=== PATIENT | female | born 1980 | race Caucasian/White ===

== ENCOUNTER 2017-10-17 00:05 | Inpatient (IN) | payer OTHER ==
[~2017-10-17] VITALS: Ht 162.6 cm; Wt 133.5 kg
[2017-10-17] VITALS (12 sets, daily range): BP systolic 138–174; BP diastolic 73–92; PULSE 64–89; RESP 18–24; TEMP 97.7–98.6; O2SAT 94–96
[~2017-10-17 00:05] MED LIST: AMOX400S3 PO; AMOX875T2 PO; PRED5PAK PO; REGL10TA5 PO; SODIUM CHLORIDE 0.9% FLUSH 10 ML FLUSH IV FLUSH PRN
--- NOTE | 2017-10-17 06:37 | HHI.HP ---
[facility] Service [place] [facility] Primary Care Physician [facility] - Dr. Giang . Admission Diagnosis r/o CVA, dysphagia . Diagnoses: (1) Dysphagia Chief Complaint: Dysphagia Travel History International Travel<30 Days: No Contact w/Intl Traveler <30 Da: No History of Present Illness Mrs. Morel is a very pleasant 37-year-old female patient who was brought to [facility] from [place] for evaluation of possible CVA. The patient's symptoms began on Sunday when she woke up with the left side of her face around her eye and ear and down her cheek into her neck felt severely painful. The pain is described as a pressure. She thought it was an ear infection and went to work. She made appointment to see her primary care physician at [facility] Dr. Portillo. She said that they didn't find any source of infection but her white blood count was elevated and they put her on prednisone and amoxicillin. Regarding her ear, she had a little bit of fluid but no overt otitis media. If she states that she felt like she had something in her throat that could've been mucus. She vomited a few times during the day. She ate soup for lunch and was able to swallow but it was uncomfortable. After work, she had a terrible pain in her head and she took her first dose of prednisone and amoxicillin and follow like it got stuck in her throat. She said she had had a similar experience with ibuprofen a few years ago when it got stuck in her throat while she swallowed and she had subsequent lip swelling following that episode. She continued to feel like pills were stuck in her throat throughout the day and the night and vomited a total of 4 times during the day. 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 She reports that she is vomited so much that she's caused too subconjunctival hemorrhages in her eyes. She went to the emergency room and was given some liquid amoxicillin which was uncomfortable to drink. She was able to get it down but she also felt belching and heartburn. She was discharged and sent home. About 2:30 PM, her throat was feeling tight and swollen and she returned to the emergency room. On the first soft tissue and neck x-ray, a foreign body was thought to be present near the left giana but was later identified as most likely the patient's shirt button. The chest x-ray was negative for foreign body. She had cardiomegaly but no acute pulmonary disease. She's had a head CT with no acute disease noted. The patient reports that her speech seems weird because she is having difficulty controlling her tongue. She didn't feel any better after receiving steroids and Benadryl in the ED. She notices that she is coughing more since receiving a numbing medication in the emergency department last night that was given for sore throat. She tells me they had a negative strep test in the ED. She has no history of migraine headaches. She has felt both hot and cold alternating and felt like she might of had a fever but has no recorded fevers. She denies chest pain, shortness of breath, diarrhea, abdominal pain, weight loss, black or bloody stools, paresthesias. She denies having any unilateral weakness. She reports headache as feeling like more of the left sinus type of headache with more pressure than anything else. She denies any visual changes or blurry vision though she does endorse photophobia. During flashlight eye exam, she does not turn away from the light. Her and children have been fighting bronchitis and throat infections at home. Her was the first one who was ill. Review of Systems Except as stated in HPI: all other systems reviewed are Neg Past Family Social History Past Medical History induced hypertension Anxiety History of irregular heart rhythm or heart murmur though she is unable to tell me what exactly the diagnosis was Recent bout of hematuria with tiny, nonobstructive kidney stone found Denies diabetes mellitus, CAD, COPD, asthma, emphysema, liver disease, chronic kidney disease, DVT, PE, CVA, seizure, thyroid dysfunction, or cancer. . Past Surgical History D&C . Reported Medications Reported Meds & Active Scripts Active Reglan (Metoclopramide HCl) 10 Mg Tab 10 Mg PO QID 5 Days Amoxicillin Liq (Amoxicillin) 400 Mg/5 Ml Susp 800 Mg PO BID 7 Days Reported Prednisone (21) 5 mg tab Dose Pack (Prednisone) 5 Mg Dspk 5 Mg PO DIRECTED Amoxicillin-Clavulanate 875-125 mg Tab 875 Mg PO BID not for use in CrCl <30 mL/minute . Allergies: Coded Allergies: ibuprofen (Verified Allergy, Severe, Swelling, 10/16/17) Active Ordered Medications Current Medications Sodium Chloride (NS Flush) 2 ml BID IV FLUSH ; Start 10/17/17 at 09:00 Sodium Chloride (NS Flush) 2 ml UNSCH PRN IV FLUSH FLUSH AFTER USING IV ACCESS ; Start 10/16/17 at 22:45 . Family History Mother with breast cancer, diabetes mellitus, and hypertension Dad had CHF and sarcoidosis . Social History Tobacco: Smoked briefly for 10 years but not with any regularity and never smoked while Alcohol: Rare occasions Illicit Drugs: Denies She is and has 3 sons. 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 She's been under a lot of stress recently. . Physical Exam Vital Signs Vital Signs Date Time Temp Pulse Resp B/P (MAP) Pulse Ox O2 Delivery O2 Flow Rate FiO2 10/17/17 05:07 64 10/17/17 04:13 98.4 86 18 169/84 (112) 96 10/17/17 02:11 71 10/17/17 01:13 97.9 73 18 174/92 (119) 95 Physical Exam GENERAL: This is an obese female patient, in no apparent distress. SKIN: No rashes, ecchymoses or lesions. Cool and dry. HEAD: Atraumatic. Normocephalic. EYES: Pupils equal round and reactive. No scleral icterus. Bilateral subconjunctival hemorrhage. ENT: Nose without bleeding, purulent drainage. Throat without erythema, tonsillar hypertrophy or exudate. Airway patent. Pain with palpation of left sphenoid sinus area and mid frontal area of face. NECK: Trachea midline. No JVD or lymphadenopathy. Supple, nontender, no meningeal signs. CARDIOVASCULAR: Regular rate and rhythm without murmurs, gallops, or rubs. RESPIRATORY: Clear to auscultation. Breath sounds equal bilaterally. No wheezes , rales, or rhonchi. GASTROINTESTINAL: Abdomen soft, non-tender, nondistended. No hepato-splenomegaly , or palpable masses. No guarding. MUSCULOSKELETAL: Extremities without clubbing, cyanosis, or edema. No joint tenderness, effusion, or edema noted. No calf tenderness. Negative Homans sign bilaterally. NEUROLOGICAL: Awake and alert. Motor and sensory grossly within normal limits. Five out of 5 muscle strength in all muscle groups. Speech does sound like there is some mild impairment. Patient was given water at bedside and coughed after taking a couple of sips. Left side of tongue appears to be somewhat swollen or more elevated on left during exam - whichever, it is a noticeable finding - there is no tongue deviation with protrusion. No pain with palpation in lutheran areas. . Laboratory Laboratory Tests Test 10/16/17 22:20 10/16/17 23:30 Prothrombin Time 10.7 SEC Prothromb Time International Ratio 1.0 RATIO Activated Partial Thromboplast Time 28.7 SEC White Blood Count 14.1 TH/MM3 Red Blood Count 4.54 MIL/MM3 Hemoglobin 13.4 GM/DL Hematocrit 39.9 % Mean Corpuscular Volume 87.9 FL Mean Corpuscular Hemoglobin 29.5 PG Mean Corpuscular Hemoglobin Concent 33.6 % Red Cell Distribution Width 13.5 % Platelet Count 374 TH/MM3 Mean Platelet Volume 9.4 FL Immature Granulocyte % (Auto) 0.4 % Neutrophils (%) (Auto) 91.2 % Lymphocytes (%) (Auto) 7.8 % Monocytes (%) (Auto) 0.5 % Eosinophils (%) (Auto) 0.0 % Basophils (%) (Auto) 0.1 % Immature Granulocyte # (Auto) 0.1 TH/MM3 Neutrophils # (Auto) 12.8 TH/MM3 Lymphocytes # (Auto) 1.1 TH/MM3 Monocytes # (Auto) 0.1 TH/MM3 Eosinophils # (Auto) 0.0 TH/MM3 Basophils # (Auto) 0.0 TH/MM3 CBC Comment DIFF FINAL Differential Comment Blood Urea Nitrogen 8 MG/DL Creatinine 0.70 MG/DL Random Glucose 170 MG/DL Total Protein 8.4 GM/DL Albumin 3.8 GM/DL Calcium Level 9.0 MG/DL Alkaline Phosphatase 109 U/L Aspartate Amino Transf (AST/SGOT) 10 U/L Alanine Aminotransferase (ALT/SGPT) 20 U/L Total Bilirubin 0.4 MG/DL Sodium Level 138 MEQ/L Potassium Level 4.4 MEQ/L Chloride Level 105 MEQ/L Carbon Dioxide Level 23.0 MEQ/L Anion Gap 10 MEQ/L Estimat Glomerular Filtration Rate 94 ML/MIN . Imaging Last Impressions Head CT 10/16/17 Signed Impressions: Service Date/Time: Monday, October 16, 2017 21:15 - CONCLUSION: No acute disease. Jm Driver MD Last Impressions Soft Tissue Neck X-Ray 10/16/17 Signed Impressions: Service Date/Time: Monday, October 16, 2017 10:02 - CONCLUSION: Foreign body as above. Chest x-ray suggested. Guy Lau MD FACR Chest X-Ray 10/16/17 Signed Impressions: Service Date/Time: Monday, October 16, 2017 10:37 - CONCLUSION: 1. Cardiomegaly. No acute pulmonary disease. No foreign body is identified. MD Scott Ayoub VTE Risk Assessment Caprini VTE Risk Assessment: No/Low Risk (score <= 1) Caprini Risk Assessment Model Point Value = 1 Point Value = 2 Point Value = 3 Point Value = 5 Age 41-60 Minor surgery BMI > 25 kg/m2 Swollen legs Varicose veins or History of unexplained or recurrent spontaneous Oral contraceptives or hormone replacement Sepsis (< 1 month) Serious lung disease, including pneumonia (< 1 month) Abnormal pulmonary function Acute myocardial infarction Congestive heart failure (< 1 month) History of inflammatory bowel disease Medical patient at bed rest Age 61-74 Arthroscopic surgery Major open surgery (> 45 min) Laparoscopic surgery (> 45 min) Malignancy Confined to bed (> 72 hours) Immobilizing plaster cast Central venous access Age >= 75 History of VTE Family history of VTE Factor V Leiden Prothrombin [id number] Lupus anticoagulant Anticardiolipin antibodies Elevated serum homocysteine Heparin-induced thrombocytopenia Other congenital or acquired thrombophilia Stroke (< 1 month) Elective arthroplasty Hip, pelvis, or leg fracture Acute spinal cord injury (< 1 month) Prophylaxis Regimen Total Risk Factor Score Risk Level Prophylaxis Regimen 0-1 Low Early ambulation 2 Moderate Order ONE of the following: *Sequential Compression Device (SCD) *Heparin 5000 units SQ BID 3-4 Higher Order ONE of the following medications: *Heparin 5000 units SQ TID *Enoxaparin/Lovenox 40 mg SQ daily (WT < 150 kg, CrCl > 30 mL/min) *Enoxaparin/Lovenox 30 mg SQ daily (WT < 150 kg, CrCl > 10-29 mL/min) *Enoxaparin/Lovenox 30 mg SQ BID (WT < 150 kg, CrCl > 30 mL/min) AND/OR *Sequential Compression Device (SCD) 5 or more Highest Order ONE of the following medications: *Heparin 5000 units SQ TID (Preferred with Epidurals) *Enoxaparin/Lovenox 40 mg SQ daily (WT < 150 kg, CrCl > 30 mL/min) *Enoxaparin/Lovenox 30 mg SQ daily (WT < 150 kg, CrCl > 10-29 mL/min) *Enoxaparin/Lovenox 30 mg SQ BID (WT < 150 kg, CrCl > 30 mL/min) AND *Sequential Compression Device (SCD) Assessment and Plan Problem List: (1) Dysphagia ICD Code: R13.10 - Dysphagia, unspecified Assessment and Plan Mrs. Morel is a very pleasant 37-year-old female patient who was brought to [facility] from [place] for evaluation of possible CVA. Dysphagia - suspect there may be underlying GERD with possible stricture vs CVA vs anxiety vs adverse reaction to lidocaine/benzocaine lozenges - Patient failed bedside swallow evaluation - She'll remain nothing by mouth - ST to evaluate swallowing - Consult gastroenterology - appreciate assistance - MRI and MRA are pending to rule out CVA - Neurology consultation patient by ER physician in [place] - appreciate their assistance - The patient has been using benzocaine throat lozenges and states she was also given lidocaine mouthwash in [place] - These medications also may be playing a role in the patient's symptoms at this point so I would avoid any additional use at this time Left facial pressure - I suspect this may be more related to sinus congestion though this is not noted on head CT - WBC is 14.1 with neutrophilia but she's been given steroids also - She is afebrile at this point and I do not feel that antibiotics are appropriate to continue - No left temporal pain on palpation DVT prophylaxis - Early ambulation Discussed Condition With Patient, RN, Dr. Weems . Stephanie Hillman Oct 17, 2017 06:37
[2017-10-17] MEDS: SODIUM CHLORIDE 0.9% FLUSH 10 ML FLUSH IV FLUSH SCH ×2 (09:00→21:00)
--- NOTE | 2017-10-17 09:51 | RADRPT ---
EXAM DATE/TIME: 10/17/2017 08:41 [facility] COMPARISON: No previous studies available for comparison. INDICATIONS : Left sided numbness. MEDICAL HISTORY : None. SURGICAL HISTORY : D and C. ENCOUNTER: Initial ACUITY: 1 day PAIN SCORE: 0/10 LOCATION: Head Please note a normal MRA of the brain does not entirely exclude the possibility of a small aneurysm, nor the possibility of distal intracranial vessel disease. TECHNIQUE: 3D time of flight MRA was performed. Source images, multiplanar STS MIP, and 3D volume MIP reconstru ctions were reviewed. FINDINGS: There is excellent visualization of the major intracranial arteries out to the second-order branch ve ssels. There is no evidence for aneurysm, vessel truncation or stenosis, and no evidence for vascula r malformation. There is a origin of the posterior cerebral artery on the left. There is a black nt posterior communicating artery on the right. A vascular loop is present in the distal internal car otid artery. CONCLUSION: 1. Unremarkable MR angiography of the brain. Jose Krause MD on October 17, 2017 at 9:47 Board Certified Radiologist. This report was verified electronically.
--- NOTE | 2017-10-17 09:52 | RADRPT ---
EXAM DATE/TIME: 10/17/2017 08:41 [facility] COMPARISON: No previous studies available for comparison. INDICATIONS : Left sided numbness. MEDICAL HISTORY : None. SURGICAL HISTORY : D and C. ENCOUNTER: Initial ACUITY: 2 day PAIN SCORE: 0/10 LOCATION: Head TECHNIQUE: Multiplanar, multisequence MRI of the brain was performed without contrast. FINDINGS: CEREBRUM: The ventricles are normal for age. No evidence of midline shift, mass lesion, hemorrhage or acute in farction. No extraaxial fluid collections are seen. The pituitary gland and suprasellar cistern are normal in configuration. WHITE MATTER: No significant signal abnormalities are seen in the white matter. POSTERIOR FOSSA: The cerebellum and brainstem are intact. The 4th ventricle is midline. The cerebellopontine angle is unremarkable. The cerebellar tonsils are normal in position. DIFFUSION IMAGING: No focal areas of restricted diffusion are seen. No evidence of acute infarction. EXTRACRANIAL: The visualized portions of the orbits and paranasal sinuses are unremarkable. CONCLUSION: 1. No evidence of acute intracranial pathology. No masses are identified. Jose Krause MD on October 17, 2017 at 9:49 Board Certified Radiologist. This report was verified electronically.
--- NOTE | 2017-10-17 09:55 | PD.CONS ---
HPI History of Present Illness This is a 37 year old female who presented with bolus sensation in throat. 2 days ago she began having throat discomfort and subsequently became bolus sensation after swallowing pills and she started having nausea and vomiting. Admits tongue swelling, increased burping. When she bent over to dry her hair she felt like the discomfort moved up her throat and she had some acid reflux that came out of her nose. SHe is able to swallow her secretions but is having difficulty initiating a swallow and feels like her tongue is not functioning. SHe had episode of pill stuck in throat a few years ago but it resolved. Denies painful swallowing, abd pain, blood in emesis, diarrhea, acid reflux. SHe admits pain in her head and neck, is being evaluated for stroke. Has sick family members in house. Never had EGD or colonoscopy. Swallow eval pending b/ c she is also coughing after swallowing in the last 2 days. SHe took prednisone and amoxicillin Sunday. (Marylou Yoder) PFSH Past Medical History induced hypertension Anxiety History of irregular heart rhythm or heart murmur though she is unable to tell me what exactly the diagnosis was Recent bout of hematuria with tiny, nonobstructive kidney stone found Past Surgical History D&C . (Marylou Yoder) Coded Allergies: ibuprofen (Verified Allergy, Severe, Swelling, 10/16/17) Family History Mother with breast cancer, diabetes mellitus, and hypertension Dad had CHF and sarcoidosis . Social History Tobacco: Smoked briefly for 10 years but not with any regularity and never smoked while Alcohol: Rare occasions Illicit Drugs: Denies . (Marylou Yoder) Review of Systems Constitutional: COMPLAINS OF: Fever Eyes: DENIES: Blurred vision Ears, nose, mouth, throat: DENIES: Throat pain Respiratory: DENIES: Wheezing Cardiovascular: DENIES: Chest pain Gastrointestinal: COMPLAINS OF: Nausea, Vomiting, DENIES: Abdominal pain, Black stools, Bloody stools, Constipation, Diarrhea, Difficulty Swallowing, Hematemesis Genitourinary: DENIES: Hematuria Musculoskeletal: DENIES: Joint Swelling Hematologic/lymphatic: DENIES: Bruising Neurologic: DENIES: Abnormal gait Psychiatric: COMPLAINS OF: Anxiety, DENIES: Confusion (Marylou Yoder) GI Exam Vitals I&O Vital Signs Date Time Temp Pulse Resp B/P (MAP) Pulse Ox O2 Delivery O2 Flow Rate FiO2 10/17/17 07:58 98.6 80 24 155/89 (111) 96 10/17/17 05:07 64 10/17/17 04:13 98.4 86 18 169/84 (112) 96 10/17/17 02:11 71 10/17/17 01:13 97.9 73 18 174/92 (119) 95 Physical Examination HEENT: PERRL; normocephalic; atraumatic; no jaundice. tongue appears mildly swollen, whitish coating CHEST: CTA CARDIAC: RRR ABDOMEN: Soft, obese, nontender; no hepatosplenomegaly; bowel sounds are present in all four quadrants. EXTREMITIES: No clubbing, cyanosis, or edema. SKIN: Normal; no rash; no jaundice. WOOD CASKET MAKER: No focal deficits; alert and oriented times three. (Marylou Yoder) Assessment and Plan Plan ASSESSMENT - bolus sensation, dysphagia, reflux- pt admits difficulty initiating swallow, swollen tongue, bolus sensation throat for last 2 days. Some n/v as well. had amox & prednisone Sunday. + sick contacts. unclear etiology could include gastritis vs h pylori vs candidiasis. being evaluated for CVA d/t unilateral face pain as well. + anxiety ST eval no sign of aspiration, swallow intact, and ok for any consistency, d/ w speech therapist PLAN - EGD, tomorrow - full liquids for now - obtain consents - NPO after MN - further recs to follow based on results above THis pt seen by myself and Dr Romero and this note is written on his behalf (Marylou Yoder) Physician Comments Seen and examined with DISTILLERY MANAGER< egd planned for tomorrow. Passed swallow evaluation. (John Romero MD) Marylou Yoder Oct 17, 2017 09:55 John Romero MD Oct 17, 2017 16:47
[2017-10-17] MEDS ORDERED: ENALAPRILAT 1.25 MG/ML VIAL IV PUSH PRN (11:00)
[2017-10-17] MEDS: MORPHINE SULFATE ORAL SOLN 10 MG/0.5 ML SYRINGE PO PRN ×2 (14:01→20:43)
[2017-10-17 18:50] LABS: HDL CHOLESTEROL 53.7 MG/DL (40.0-60.0); LDL CHOLESTEROL 109 MG/DL (0-99)
[2017-10-17] MEDS: SODIUM CHLOR 0.9% 1000 ML INJ 1,000 ML IV SCH (20:43)
[2017-10-17 21:45] LABS: HEMOGLOBIN A1a 1.4 %; HEMOGLOBIN Ao 83.8 %; HEMOGLOBIN F 1.5 %; HEMOGLOBIN LA1C 2.3 %; HEMOGLOBIN P3 3.8 %
[2017-10-17] MEDS ORDERED: METOPROLOL TARTRATE 25 MG TAB PO PRN (21:45)
[2017-10-17] MEDS ORDERED: LACTATED RINGER'S 1000 ML IV PRN (21:45)
[2017-10-17] MEDS ORDERED: CHLORHEXIDINE GLUCONATE 2 % 1 PACK (2 CLOTHS) TOPICAL PRN (21:45)
[2017-10-17] MEDS ORDERED: INSULIN HUMAN REGULAR 1,000 UNITS/10 ML VIAL SQ PRN (21:45)
[2017-10-17] MEDS ORDERED: SODIUM CHLORID 0.9% 500 ML IV PRN (21:45)
[2017-10-17] MEDS ORDERED: POVIDONE IODINE 5% (ANTISEPSIS KIT) 4 APPLICATIONS EACH NARE PRN (21:45)
--- NOTE | 2017-10-17 21:54 | MB ---
cc: ELLYN WILLIS DATE OF CONSULTATION: 10/17/2017 REASON FOR CONSULTATION: Rule out stroke. HISTORY OF PRESENT ILLNESS Ms. Morel is a 37 year-old woman who on Sunday began to experience pain on the left side of her head which was in the left temporal area radiating to the left occipital region. She went to the ER. Apparently the ear exam was normal but she was started on amoxicillin for possible sinusitis that did not help the pain. She denies any other neurologic symptoms. NEUROLOGICAL EXAMINATION: Vital signs: Blood pressure is 138/73, pulse 82, respirations 18, temperature is 98 degrees. Higher cortical functions normal. Cranial nerves are intact. Motor exam: 5/5 strength of all groups. There is no drift. Reflexes symmetric. She is tender of the left occipital groove. MRI of the brain is normal. MRA of the brain is normal. LABORATORY DATA: The white count is 14,100, hemoglobin 13.4, hematocrit 39.9% platelet count 374,000. Sodium 138, potassium 4.4, chloride 105, CO2 23, BUN is 8, creatinine 0.7, GFR is 94. IMPRESSION Probable cervical spondylosis with left occipital neuralgia. RECOMMENDATIONS We will obtain an MRI of the cervical spine to rule out cervical spondylosis, start Topamax 25 mg b.i.d., consider occipital nerve block. MD ROSALIA Lawrence/RIGO /9:13 PM /9:36 PM
[2017-10-17 22:37] LABS: BETA HCG QUANT LESS THAN 1 MIU/ML (0-5)
--- NOTE | 2017-10-17 23:11 | RADRPT ---
EXAM DATE/TIME: 10/17/2017 21:39 [facility] COMPARISON: No previous studies available for comparison. INDICATIONS : Left sided numbness and inability to swallow, cervical spondylosis. MEDICAL HISTORY : None. SURGICAL HISTORY : None. ENCOUNTER: Initial ACUITY: 3 day PAIN SCORE: 4/10 LOCATION: Left neck region. TECHNIQUE: Multiplanar, multisequence MRI examination of the cervical spine was performed. FINDINGS: VERTEBRAE: Normal vertebral body height. Homogeneous marrow signal. ALIGNMENT: No evidence of subluxation. CORD: Normal configuration and signal. POST FOSSA: The cerebellar tonsils are normal in position. C2-C3: The thecal sac has a normal configuration. There is no evidence of disc herniation or spinal canal s tenosis. The neural foramina are patent bilaterally. C3-C4: The thecal sac has a normal configuration. There is no evidence of disc herniation or spinal canal s tenosis. The neural foramina are patent bilaterally. C4-C5: The thecal sac has a normal configuration. There is no evidence of disc herniation or spinal canal s tenosis. The neural foramina are patent bilaterally. C5-C6: The thecal sac has a normal configuration. There is no evidence of disc herniation or spinal canal s tenosis. The neural foramina are patent bilaterally. C6-C7: The thecal sac has a normal configuration. There is no evidence of disc herniation or spinal canal s tenosis. The neural foramina are patent bilaterally. C7-T1: The thecal sac has a normal configuration. There is no evidence of disc herniation or spinal canal s tenosis. The neural foramina are patent bilaterally. CONCLUSION: 1. Cervical cord is within normal limits with no focal lesion or abnormal signal. 2. No disc protrusion or spinal stenosis. The neural foramina are patent. Syed Lion MD on October 17, 2017 at 23:08 Board Certified Radiologist. This report was verified electronically.
[2017-10-18] VITALS (17 sets, daily range): BP systolic 120–161; BP diastolic 63–92; PULSE 61–83; RESP 16–24; TEMP 97.6–98.8; O2SAT 93–98
[2017-10-18 07:38] LABS: HEMATOCRIT 37.1 % (35.0-46.0); MEAN CELL VOLUME 87.4 FL (80.0-100.0); MEAN CORPUSCULAR HEMOGLOBIN 29.2 PG (27.0-34.0); MEAN CORPUSCULAR HGB CONC 33.4 % (32.0-36.0); PLATELET COUNT 323 TH/MM3 (150-450); RED BLOOD COUNT 4.25 MIL/MM3 (4.00-5.30); RED CELL DISTRIBUTION WIDTH 13.9 % (11.6-17.2); REVIEW FLAG FINAL; WHITE BLOOD COUNT 11.9 TH/MM3 (4.0-11.0)
[2017-10-18 07:57] LABS: BICARBONATE 28.3 MEQ/L (21.0-32.0); POTASSIUM 3.7 MEQ/L (3.5-5.1)
[2017-10-18 07:59] LABS: MAGNESIUM 2.3 MG/DL (1.5-2.5)
[2017-10-18] MEDS: SODIUM CHLORIDE 0.9% FLUSH 10 ML FLUSH IV FLUSH SCH ×2 (09:00→21:00)
[2017-10-18] MEDS: TOPIRAMATE 25 MG TAB PO SCH ×2 (09:00→21:00)
--- NOTE | 2017-10-18 11:48 | GIPROC ---
[facility] [address] [facility]. [facility], [id number] EGD PROCEDURE REPORT EXAM DATE: 10/18/2017 PATIENT NAME: Letty Morel MR #: [id number] BIRTHDATE: 1980 ATTENDING: John Romero MD ORDER #: [id number] RN ADVICE: Barb Jansen and Andrea Quezada STATUS: inpatient INDICATIONS: The patient is a 37 yr old female here for an EGD due to history of esophageal reflux and dysphagia PROCEDURE PERFORMED: EGD w/ biopsy MEDICATIONS: None and Per Anesthesia. TOPICAL ANESTHETIC: CONSENT: The patient understands the risks and benefits of the procedure and understands that these risks include, but are not limited to: sedation, allergic reaction, infection, perforation and/or bleeding. Alternative means of evaluation and treatment include, among others: physical exam, x-rays, and/or surgical intervention. The patient elects to proceed with this endoscopic procedure. medical equipment was checked for proper function. Hand hygiene and appropriate measures for infection prevention was taken. After the risks, benefits and alternatives of the procedure were thoroughly explained, Informed consent was verified, confirmed and timeout was successfully executed by the treatment team. The patient was anesthetized with topical anesthesia and the Stunableax [id number] endoscope was introduced through the mouth and advanced to the second portion of the duodenum. Retroflexed views revealed no abnormalities The gastroscope was then slowly withdrawn and removed. ESOPHAGUS: There was LA Class A esophagitis noted. A biopsy was performed using cold forceps. Sample sent for histology. STOMACH: The mucosa of the stomach appeared normal. DUODENUM: The duodenal mucosa appeared normal in the bulb and second portion of the duodenum. ADVERSE EVENTS: There were no complications. IMPRESSIONS: 1. There was LA Class A esophagitis noted 2. The mucosa of the stomach appeared normal 3. Normal duodenal mucosa in the bulb and second portion of the duodenum 4. Retroflexed views revealed no abnormalities RECOMMENDATIONS: 1. Await biopsy results. Biopsy results will not be ready for 7-10 days. If you don't hear from us in two weeks, call our office for biopsy results. 2. Anti-reflux regimen 3. Continue PPI PATIENT CONDITION: stable DISPOSITION: Inpatient REPEAT EXAM: Return 1 year EGD pending biopsy results John Romero MD eSigned: John Romero MD 10/18/2017 11:48 AM cc: PATIENT NAME: Letty Morel MR#: [id number]
[2017-10-18] MEDS: SODIUM CHLOR 0.9% 1000 ML INJ 1,000 ML IV SCH ×2 (12:22→16:30)
[2017-10-18] MEDS: PANTOPRAZOLE SOD 40 MG DELAYED RELEASE TAB PO SCH (12:45)
[2017-10-18] MEDS: FLUTICASONE PROPIONATE 220 MCG/ACT 12 GM INHALER INH SCH ×2 (12:45→21:39)
--- NOTE | 2017-10-18 12:53 | HHI.PR ---
Subjective Remarks The patient had come back from endoscopy. She was wondering what the findings were. She said that her has been on [employer] and found some diagnoses she wanted to run by me. She said that she had pain near her left ear. She wanted to know if she could have something for the sinusitis. She said she was still having a tough time swallowing. She said her tongue still felt swollen. Objective Vitals Vital Signs Date Time Temp Pulse Resp B/P (MAP) Pulse Ox O2 Delivery O2 Flow Rate FiO2 10/18/17 12:43 98.6 68 24 161/92 (115) 96 10/18/17 12:00 85 18 145/84 (104) 99 10/18/17 11:48 98.2 100 18 147/89 (108) 100 10/18/17 09:23 97.6 83 24 137/77 (97) 96 10/18/17 08:00 80 10/18/17 05:13 98.8 73 18 158/79 (105) 96 10/18/17 04:00 78 10/18/17 00:29 98.2 74 18 146/83 (104) 95 10/18/17 00:00 66 10/17/17 20:25 98.3 82 18 138/73 (94) 96 10/17/17 20:00 84 10/17/17 16:04 98.5 84 20 146/83 (104) 94 10/17/17 16:01 75 I/O 10/17/17 10/17/17 10/17/17 10/18/17 10/18/17 10/18/17 07:00 15:00 23:00 07:00 15:00 23:00 Intake Total 50 ml Balance 50 ml Intake Other 50 ml # Voids 1 1 Result Diagram: 10/18/1760410/18/1705 Imaging Last Impressions Head Magnetic Resonance Angiography 10/17/17 0000 Signed Impressions: Service Date/Time: Tuesday, October 17, 2017 08:41 - CONCLUSION: 1. Unremarkable MR angiography of the brain. Jose Krause MD Cervical Spine MRI 10/17/17 0000 Signed Impressions: Service Date/Time: Tuesday, October 17, 2017 21:39 - CONCLUSION: 1. Cervical cord is within normal limits with no focal lesion or abnormal signal. 2. No disc protrusion or spinal stenosis. The neural foramina are patent. Syed Lion MD Brain MRI 10/17/17 0000 Signed Impressions: Service Date/Time: Tuesday, October 17, 2017 08:41 - CONCLUSION: 1. No evidence of acute intracranial pathology. No masses are identified. Jose Krasue MD Objective Remarks GENERAL: This is an obese female patient, in no apparent distress. SKIN: No rashes, ecchymoses or lesions. Cool and dry. HEAD: Atraumatic. Normocephalic. EYES: Pupils equal round and reactive. No scleral icterus. Bilateral subconjunctival hemorrhage. ENT: Nose without bleeding, purulent drainage. Throat without erythema, tonsillar hypertrophy or exudate. Airway patent. Pain with palpation of left sphenoid sinus area and mid frontal area of face. NECK: Trachea midline. No JVD. Supple, tender, full on the right. CARDIOVASCULAR: Regular rate and rhythm without murmurs, gallops, or rubs. RESPIRATORY: Clear to auscultation. Breath sounds equal bilaterally. No wheezes , rales, or rhonchi. GASTROINTESTINAL: Abdomen soft, non-tender, nondistended. No hepato-splenomegaly , or palpable masses. No guarding. MUSCULOSKELETAL: Extremities without clubbing, cyanosis, or edema. No joint tenderness, effusion, or edema noted. No calf tenderness. Negative Homans sign bilaterally. NEUROLOGICAL: Awake and alert. Motor and sensory grossly within normal limits. Five out of 5 muscle strength in all muscle groups. Speech does sound like there is some mild impairment. Left side of tongue appears to be somewhat swollen or more elevated on exam. Procedures EGD Medications and IVs Current Medications Medications (Trade) Dose Ordered Sig/Mikki Route Start Time Stop Time Status Last Admin (NS Flush) 2 ml BID IV FLUSH 10/17/17 09:00 10/17/17 21:00 (NS Flush) 2 ml UNSCH PRN IV FLUSH 10/16/17 22:45 (Vasotec Inj) 1.25 mg Q6H PRN IV PUSH 10/17/17 11:00 (Roxanol Liq) 10 mg Q4H PRN PO 10/17/17 12:30 10/17/17 20:43 Sodium Chloride 1,000 ml @ 75 mls/hr [id number] IV 10/17/17 17:30 10/18/17 20:09 10/18/17 12:22 (Topamax) 25 mg Q12HR PO 10/18/17 09:00 Lactated Ringer's 1,000 ml @ 30 mls/hr Q24H PRN IV 10/17/17 21:45 10/20/17 21:44 Sodium Chloride 500 ml @ 30 mls/hr [id number] PRN IV 10/17/17 21:45 10/20/17 21:44 (Lopressor) 25 mg GREY TENDER PRN PO 10/17/17 21:45 10/20/17 21:44 (Betadine 5% Antisepsis Kit) 1 applic GREY TENDER PRN EACH NARE 10/17/17 21:45 10/20/17 21:44 (Chlorhexidine 2% Cloth) 3 pack GREY TENDER PRN TOPICAL 10/17/17 21:45 10/20/17 21:44 (NovoLIN R INJ) See Protocol Table ... GREY TENDER PRN SQ 10/17/17 21:45 10/20/17 21:44 Ampicillin Sodium/ Sulbactam Sodium 1500 mg/Sodium Chloride 100 ml @ 200 mls/hr Q6H IV 10/18/17 12:45 UNV (Protonix) 40 mg DAILY PO 10/18/17 12:45 UNV (Flovent Hfa 220 Mcg Inh) 1 puff BID INH 10/18/17 12:45 UNV A/P Problem List: (1) Dysphagia ICD Code: R13.10 - Dysphagia, unspecified Assessment and Plan Dysphagia MRI and MRA unremarkable. Neurology and GI consults appreciated. S/p EGD which revealed esophagitis. - ST following. - PPI. - follow up with neurolgy and GI. Left facial pressure/ Tongue swelling/ Neck pain Possible s/t sinus congestion though this is not noted on head CT. WBC is improving. She is afebrile at this point. - start Unasyn. - CT of the neck for further evaluation of swelling. - ENT consult placed. DVT prophylaxis: Early ambulation Discharge Planning Awaiting CT, ENT Syed Caro DO Oct 18, 2017 12:53
[2017-10-18] MEDS ORDERED: IOHEXOL 350 MG/ML 10 ML VIAL (for RAD DIAG) IVCONTRAST ONE (14:06)
[2017-10-18] MEDS ORDERED: diphenhydrAMINE HCL 50 MG/ML VIAL ONE (15:06)
--- NOTE | 2017-10-18 15:16 | RADRPT ---
EXAM DATE/TIME: 10/18/2017 13:59 [place] COMPARISON: MRA BRAIN W/O CONTRAST, October 17, 2017, 8:41. MRI CERVICAL SPINE W/O CONTRAST, October 17, 2017, 21:39. INDICATIONS : Left neck swelling for 4 days. RADIATION DOSE: 20.35 CTDIvol (mGy) MEDICAL HISTORY : None SURGICAL HISTORY : None. ENCOUNTER: Initial ACUITY: 4 - 6 days PAIN SCORE: 2/10 LOCATION: Left neck Patient experienced a contrast reaction consisting of hives . Patient was treated with diphenhydramine (Benadryl) IV . TECHNIQUE: Volumetric scanning of the neck was performed. Using automated exposure control and adjustment of th e mA and/or kV according to patient size, radiation dose was kept as low as reasonably achievable to obtain optimal diagnostic quality images. DICOM format image data is available electronically for r eview and comparison. FINDINGS: The left internal carotid artery is abnormal beginning immediately distal to the bifurcation and exte nding cranially to the carotid canal. There is a circumferential soft tissue around the enhancing lum en causing mild narrowing. Just proximal to the carotid canal the internal carotid artery makes a 360 Otherwise, the parotid and submandibular glands are normal. There is no lymphadenopathy. The mucosal surfaces demonstrate no acute finding. Thyroid gland is within normal limits. Bones demonstrate no ac alexx finding. Upper lung zones are clear. CONCLUSION: 1. The entire left internal carotid artery is abnormal. There is circumferential soft tissue density material causing mild luminal narrowing. Differential diagnostic considerations include either a vasc ulitis or a circumferential intramural hematoma related to dissection. 2. The remainder of the examination demonstrates no acute finding. Napoleon Rain MD on October 18, 2017 at 15:05 Board Certified Radiologist. This report was verified electronically.
[2017-10-18] MEDS: AMPICILLIN-SULBACTAM INJ 1,500 MG in SODIUM CHLORIDE 0.9% INJ 100 ML IV SCH ×3 (16:29→22:05)
[2017-10-18] MEDS: MORPHINE SULFATE ORAL SOLN 10 MG/0.5 ML SYRINGE PO PRN ×2 (16:30→21:56)
--- NOTE | 2017-10-18 18:10 | PD.VS.CON ---
History of Present Illness Chief Complaint: carotid abnormality Consult Requested by: Dr. Castro History of Present Illness 37 yo female with 3 days of neck pain, throat pain with swallowing, and what was ascribed to being a sinus infection. She was started on antibiotics and steroids without resolution. She re-presented to her PCP and there was concern for neurological issues and so imaging was done that showed no intracranial abnormality. Ultimately because of the persistence of the neck pain a CTA was obtained. The patient notes neck pain on the LEFT but no facial asymmetry. The only cranial issue she has noted is tongue swelling. Past/Family/Social History Past Medical History HTN in Past Surgical History D&C Social History nonsmoker Family History CHF CA sarcoidosis Home Medications Active Scripts Metoclopramide (Reglan) 10 Mg Tab, 10 MG PO QID for 5 Days, #20 TAB 0 Refills Prov:Napoleon Roman MD 10/16/17 Amoxicillin Liq (Amoxicillin Liq) 400 Mg/5 Ml Susp, 800 MG PO BID for Infection for 7 Days, #180 ML 0 Refills Prov:Napoleon Roman MD 10/16/17 Reported Medications Prednisone (21) 5 mg tab Dose Pack (Prednisone (21) 5 mg tab Dose Pack) 5 Mg Dspk, 5 MG PO DIRECTED for Inflammation, #1 DSPK 0 Refills 10/16/17 Amoxicillin-Clavulanate (Amoxicillin-Clavulanate) 875-125 mg Tab, 875 MG PO BID for Infection, TAB 0 Refills not for use in CrCl <30 mL/minute 10/16/17 Coded Allergies: ibuprofen (Verified Allergy, Severe, Swelling, 10/16/17) iodine (Verified Allergy, Intermediate, hives, 10/18/17) Review of Systems Constitutional: COMPLAINS OF: Chills Eyes: DENIES: Blurred vision, Diplopia, Eye inflammation, Eye pain, Vision loss , Photosensitivity, Double Vision Ears, nose, mouth, throat: COMPLAINS OF: Throat pain, Ear Pain, Sinus Pain Musculoskeletal: COMPLAINS OF: Neck pain Neurologic: COMPLAINS OF: Headache Physical Exam Vitals/I&O Date Time Temp Pulse Resp B/P (MAP) Pulse Ox O2 Delivery O2 Flow Rate FiO2 10/18/17 16:03 98.0 61 18 145/71 (95) 98 10/18/17 15:20 61 17 122/70 (87) 95 12/7/17 15:10 76 18 122/63 (82) 95 10/18/17 15:00 72 17 120/74 (89) 94 10/18/17 14:50 63 16 126/86 (99) 93 10/18/17 14:40 98.4 72 17 125/73 (90) 97 10/18/17 12:43 98.6 68 24 161/92 (115) 96 10/18/17 12:00 85 18 145/84 (104) 99 10/18/17 11:48 98.2 100 18 147/89 (108) 100 10/18/17 09:23 97.6 83 24 137/77 (97) 96 10/18/17 08:00 80 10/18/17 05:13 98.8 73 18 158/79 (105) 96 10/18/17 04:00 78 10/18/17 00:29 98.2 74 18 146/83 (104) 95 10/18/17 00:00 66 10/17/17 20:25 98.3 82 18 138/73 (94) 96 10/17/17 20:00 84 10/18/17 10/18/17 10/18/17 07:00 15:00 23:00 Intake Total 50 ml Balance 50 ml Neuro: alert, ALDRIDGE without focal defect HEENT: NC/AT; L eye injected conjunctiva EOMI Neck: + TTP L neck Heart: reg rate, no M Lungs: clear B Vascular: palpable UE pulses Extremities: ALDRIDGE, good strength Laboratory Tests Test 10/18/17 06:05 White Blood Count 11.9 Red Blood Count 4.25 Hemoglobin 12.4 Hematocrit 37.1 Mean Corpuscular Volume 87.4 Mean Corpuscular Hemoglobin 29.2 Mean Corpuscular Hemoglobin Concent 33.4 Red Cell Distribution Width 13.9 Platelet Count 323 Mean Platelet Volume 8.0 Blood Urea Nitrogen 13 Creatinine 0.77 Random Glucose 111 Calcium Level 8.0 Magnesium Level 2.3 Sodium Level 138 Potassium Level 3.7 Chloride Level 103 Carbon Dioxide Level 28.3 Anion Gap 7 Estimat Glomerular Filtration Rate 84 C-Reactive Protein 0.46 Last [address] 10/18/17 0000 Signed Impressions: Service Date/Time: October 13:59 - CONCLUSION: 1. The entire left internal carotid artery is abnormal. There is circumferential soft tissue density material causing mild luminal narrowing. Differential diagnostic considerations include either a vasculitis or a circumferential intramural hematoma related to dissection. 2. The remainder of the examination demonstrates no acute finding. Napoleon Rain MD Head Magnetic Resonance Angiography 10/17/17 Signed Impressions: Service Date/Time: Tuesday, October 17, 2017 08:41 - CONCLUSION: 1. Unremarkable MR angiography of the brain. Jose Krause MD Cervical Spine MRI 10/17/17 Signed Impressions: Service Date/Time: Tuesday, October 17, 2017 21:39 - CONCLUSION: 1. Cervical cord is within normal limits with no focal lesion or abnormal signal. 2. No disc protrusion or spinal stenosis. The neural foramina are patent. Syed Lion MD Brain MRI 10/17/17 Signed Impressions: Service Date/Time: Tuesday, October 17, 2017 08:41 - CONCLUSION: 1. No evidence of acute intracranial pathology. No masses are identified. 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 In terms of the ICA dissection, her main symptom is the neck pain. We talked about the etiologies of ICA dissection (trauma, FMD, idiopathic). I think she should be on antiplatelet therapy (ASA 325 mg daily) and I will arrange outpatient f/u. I don't think anything will need to be done with this. Jm Vega MD FACS RPVI punch press operator [facility] at [facility] [phone] Jm Vega MD Oct 18, 2017 18:10
[2017-10-19] VITALS (11 sets, daily range): BP systolic 139–160; BP diastolic 77–90; PULSE 60–92; RESP 17–20; TEMP 97.8–98.8; O2SAT 96–97
[2017-10-19] MEDS: SODIUM CHLOR 0.9% 1000 ML INJ 1,000 ML IV SCH (00:43)
[2017-10-19] MEDS: AMPICILLIN-SULBACTAM INJ 1,500 MG in SODIUM CHLORIDE 0.9% INJ 100 ML IV SCH ×4 (02:27→20:40)
[2017-10-19 07:05] LABS: AUTOMATED NEUTROPHIL # 7.3 TH/MM3 (1.8-7.7); BASOPHIL % 0.3 % (0.0-2.0); EOSINOPHIL # 0.2 TH/MM3 (0-0.4); EOSINOPHIL % 1.5 % (0.0-4.0); HEMATOCRIT 37.8 % (35.0-46.0); HEMO FLAGS DIFF FINAL; LYMPH % 23.2 % (9.0-44.0); LYMPHOCYTE # 2.5 TH/MM3 (1.0-4.8); MEAN CELL VOLUME 87.5 FL (80.0-100.0); MEAN CORPUSCULAR HEMOGLOBIN 29.4 PG (27.0-34.0); MEAN CORPUSCULAR HGB CONC 33.5 % (32.0-36.0); MONO % 8.1 % (0.0-8.0); NEUT % 66.9 % (16.0-70.0); PLATELET COUNT 306 TH/MM3 (150-450); RED BLOOD COUNT 4.32 MIL/MM3 (4.00-5.30); RED CELL DISTRIBUTION WIDTH 13.9 % (11.6-17.2); WHITE BLOOD COUNT 10.8 TH/MM3 (4.0-11.0)
[2017-10-19] MEDS: MORPHINE SULFATE ORAL SOLN 10 MG/0.5 ML SYRINGE PO PRN ×2 (07:11→20:39)
[2017-10-19] MEDS: SODIUM CHLORIDE 0.9% FLUSH 10 ML FLUSH IV FLUSH SCH ×2 (09:00→20:41)
[2017-10-19] MEDS: FLUTICASONE PROPIONATE 220 MCG/ACT 12 GM INHALER INH SCH ×2 (09:00→20:40)
[2017-10-19] MEDS: TOPIRAMATE 25 MG TAB PO SCH ×3 (09:00→20:43)
[2017-10-19] MEDS: PANTOPRAZOLE SOD 40 MG DELAYED RELEASE TAB PO SCH (09:00)
--- NOTE | 2017-10-19 09:34 | HHI.PR ---
Review/Management Diagnosis Left carotid abnormality on CT--possible dissection. No clinical sign of tia or cva possible left CN 12 palsey Plan repeat MRI brain--r/o brainstem cva MRA carotids in neck to further assess for dissection Dr Lazar note appreciated. Rx with asa 325 mg daily Diagnosis/Plan: Subjective Subjective Comments No acute events reported still experiencing left neck pain and notices tongue is weak denies speech changes, focal weakness or numbness Active Medications Current Medications Medications (Trade) Dose Ordered Sig/Mikki Route Start Time Stop Time Status Last Admin (NS Flush) 2 ml BID IV FLUSH 10/17/17 09:00 10/17/17 21:00 (NS Flush) 2 ml UNSCH PRN IV FLUSH 10/16/17 22:45 (Vasotec Inj) 1.25 mg Q6H PRN IV PUSH 10/17/17 11:00 (Roxanol Liq) 10 mg Q4H PRN PO 10/17/17 12:30 10/19/17 07:11 (Topamax) 25 mg Q12HR PO 10/18/17 09:00 Lactated Ringer's 1,000 ml @ 30 mls/hr Q24H PRN IV 10/17/17 21:45 10/20/17 21:44 (Lopressor) 25 mg TEST PREPARER PRN PO 10/17/17 21:45 10/20/17 21:44 (Betadine 5% Antisepsis Kit) 1 applic TEST PREPARER PRN EACH NARE 10/17/17 21:45 10/20/17 21:44 (Chlorhexidine 2% Cloth) 3 pack TEST PREPARER PRN TOPICAL 10/17/17 21:45 10/20/17 21:44 (NovoLIN R INJ) See Protocol Table ... TEST PREPARER PRN SQ 10/17/17 21:45 10/20/17 21:44 Ampicillin Sodium/ Sulbactam Sodium 1500 mg/Sodium Chloride 100 ml @ 200 mls/hr Q6H IV 10/18/17 14:00 10/19/17 09:21 (Protonix) 40 mg DAILY PO 10/18/17 12:45 (Flovent Hfa 220 Mcg Inh) 1 puff BID INH 10/18/17 12:45 10/18/17 21:39 Sodium Chloride 1,000 ml @ 100 mls/hr Q10H IV 10/18/17 14:00 10/19/17 00:43 Allergies Allergies Coded Allergies ibuprofen (Verified Allergy, Severe, Swelling, 10/16/17) iodine (Verified Allergy, Intermediate, hives, 10/18/17) Exam I&O / VS Vital Signs Date Time Temp Pulse Resp B/P (MAP) Pulse Ox O2 Delivery O2 Flow Rate FiO2 10/19/17 08:22 97.9 72 20 160/90 (113) 96 10/19/17 07:41 65 10/19/17 03:50 98.4 71 17 154/81 (105) 97 10/19/17 03:00 60 10/19/17 00:04 63 10/19/17 00:00 98.5 84 17 144/77 (99) 96 10/18/17 20:39 98.7 74 16 142/79 (100) 97 10/18/17 20:02 83 10/18/17 17:30 18 10/18/17 16:30 70 10/18/17 16:03 98.0 61 18 145/71 (95) 98 10/18/17 15:20 61 17 122/70 (87) 95 10/18/17 15:10 76 18 122/63 (82) 95 10/18/17 15:00 72 17 120/74 (89) 94 10/18/17 14:50 63 16 126/86 (99) 93 10/18/17 14:40 98.4 72 17 125/73 (90) 97 10/18/17 12:44 71 10/18/17 12:43 98.6 68 24 161/92 (115) 96 10/18/17 12:00 85 18 145/84 (104) 99 10/18/17 11:48 98.2 100 18 147/89 (108) 100 Exam Comments alert, speech is normal CN pupils 2 mm symmetric and reactive. EOM intact. No facial weakness. left tongue weak deviated to left --possible CN 12 MOTOR 5/5 BUE and BLE, no drift Objective Radiology Results CT neck--abnormal left carotid possible dissection vs vasculitis MRI cervical spine--no significant stenosis Micro and Labs Laboratory Tests Test 10/18/17 18:07 10/19/17 06:21 Erythrocyte Sedimentation Rate 24 White Blood Count 10.8 Red Blood Count 4.32 Hemoglobin 12.7 Hematocrit 37.8 Mean Corpuscular Volume 87.5 Mean Corpuscular Hemoglobin 29.4 Mean Corpuscular Hemoglobin Concent 33.5 Red Cell Distribution Width 13.9 Platelet Count 306 Mean Platelet Volume 7.3 Neutrophils (%) (Auto) 66.9 Lymphocytes (%) (Auto) 23.2 Monocytes (%) (Auto) 8.1 Eosinophils (%) (Auto) 1.5 Basophils (%) (Auto) 0.3 Neutrophils # (Auto) 7.3 Lymphocytes # (Auto) 2.5 Monocytes # (Auto) 0.9 Eosinophils # (Auto) 0.2 Basophils # (Auto) 0.0 CBC Comment DIFF FINAL Differential Comment Sukhwinder Cates PhD Oct 19, 2017 09:34
--- NOTE | 2017-10-19 09:58 | HHI.PR ---
Subjective Remarks The patient said her tongue was still acting strange and she was still having trouble swallowing. She said she spoke with the vascular surgeon and neurologist. Her questions were answered. She describes some lower abdominal pain after urinating. Objective Vitals Vital Signs Date Time Temp Pulse Resp B/P (MAP) Pulse Ox O2 Delivery O2 Flow Rate FiO2 10/19/17 08:22 97.9 72 20 160/90 (113) 96 10/19/17 07:41 65 10/19/17 03:50 98.4 71 17 154/81 (105) 97 10/19/17 03:00 60 10/19/17 00:04 63 10/19/17 00:00 98.5 84 17 144/77 (99) 96 10/18/17 20:39 98.7 74 16 142/79 (100) 97 10/18/17 20:02 83 10/18/17 17:30 18 10/18/17 16:30 70 10/18/17 16:03 98.0 61 18 145/71 (95) 98 10/18/17 15:20 61 17 122/70 (87) 95 10/18/17 15:10 76 18 122/63 (82) 95 10/18/17 15:00 72 17 120/74 (89) 94 10/18/17 14:50 63 16 126/86 (99) 93 10/18/17 14:40 98.4 72 17 125/73 (90) 97 10/18/17 12:44 71 10/18/17 12:43 98.6 68 24 161/92 (115) 96 10/18/17 12:00 85 18 145/84 (104) 99 10/18/17 11:48 98.2 100 18 147/89 (108) 100 I/O 10/18/17 10/18/17 10/18/17 10/19/17 10/19/17 10/19/17 07:00 15:00 23:00 07:00 15:00 23:00 Intake Total 50 ml 100 ml Balance 50 ml 100 ml Intake IV Total 100 ml Other 50 ml Result Diagram: 10/19/17 0621 10/18/17 0605 Imaging Last Impressions Neck CT 10/18/17 0000 Signed Impressions: Service Date/Time: October 13:59 - CONCLUSION: 1. The entire left internal carotid artery is abnormal. There is circumferential soft tissue density material causing mild luminal narrowing. Differential diagnostic considerations include either a vasculitis or a circumferential intramural hematoma related to dissection. 2. The remainder of the examination demonstrates no acute finding. Napoleon Rain MD Head Magnetic Resonance Angiography 10/17/17 Signed Impressions: Service Date/Time: Tuesday, October 17, 2017 08:41 - CONCLUSION: 1. Unremarkable MR angiography of the brain. Jose Krause MD Cervical Spine MRI 10/17/17 Signed Impressions: Service Date/Time: Tuesday, October 17, 2017 21:39 - CONCLUSION: 1. Cervical cord is within normal limits with no focal lesion or abnormal signal. 2. No disc protrusion or spinal stenosis. The neural foramina are patent. Syed Lion MD Brain MRI 10/17/17 Signed Impressions: Service Date/Time: Tuesday, October 17, 2017 08:41 - CONCLUSION: 1. No evidence of acute intracranial pathology. No masses are identified. Jose Krause MD Objective Remarks GENERAL: This is an obese female patient, in no apparent distress. SKIN: No rashes, ecchymoses or lesions. Cool and dry. HEAD: Atraumatic. Normocephalic. EYES: Pupils equal round and reactive. No scleral icterus. Bilateral subconjunctival hemorrhage. ENT: Nose without bleeding, purulent drainage. Throat without erythema, tonsillar hypertrophy or exudate. Airway patent. Pain with palpation of left sphenoid sinus area and mid frontal area of face. NECK: Trachea midline. No JVD. Supple, tender, full on the right. CARDIOVASCULAR: Regular rate and rhythm without murmurs, gallops, or rubs. RESPIRATORY: Clear to auscultation. Breath sounds equal bilaterally. No wheezes , rales, or rhonchi. GASTROINTESTINAL: Abdomen soft, non-tender, nondistended. No hepato-splenomegaly , or palpable masses. No guarding. MUSCULOSKELETAL: Extremities without clubbing, cyanosis, or edema. No joint tenderness, effusion, or edema noted. No calf tenderness. Negative Homans sign bilaterally. NEUROLOGICAL: Awake and alert. Motor and sensory grossly within normal limits. Five out of 5 muscle strength in all muscle groups. Speech does sound like there is some mild impairment. Left side of tongue appears to be somewhat swollen or more elevated on exam. PSYCH: Mood and affect appropriate. Procedures EGD Medications and IVs Current Medications Medications (Trade) Dose Ordered Sig/Mikki Route Start Time Stop Time Status Last Admin (NS Flush) 2 ml BID IV FLUSH 10/17/17 09:00 10/17/17 21:00 (NS Flush) 2 ml UNSCH PRN IV FLUSH 10/16/17 22:45 (Vasotec Inj) 1.25 mg Q6H PRN IV PUSH 10/17/17 11:00 (Roxanol Liq) 10 mg Q4H PRN PO 10/17/17 12:30 10/19/17 07:11 (Topamax) 25 mg Q12HR PO 10/18/17 09:00 Lactated Ringer's 1,000 ml @ 30 mls/hr Q24H PRN IV 10/17/17 21:45 10/20/17 21:44 (Lopressor) 25 mg CLINICAL TRANSPLANT COORDINATOR PRN PO 10/17/17 21:45 10/20/17 21:44 (Betadine 5% Antisepsis Kit) 1 applic CLINICAL TRANSPLANT COORDINATOR PRN EACH NARE 10/17/17 21:45 10/20/17 21:44 (Chlorhexidine 2% Cloth) 3 pack CLINICAL TRANSPLANT COORDINATOR PRN TOPICAL 10/17/17 21:45 10/20/17 21:44 (NovoLIN R INJ) See Protocol Table ... CLINICAL TRANSPLANT COORDINATOR PRN SQ 10/17/17 21:45 10/20/17 21:44 Ampicillin Sodium/ Sulbactam Sodium 1500 mg/Sodium Chloride 100 ml @ 200 mls/hr Q6H IV 10/18/17 14:00 10/19/17 09:21 (Protonix) 40 mg DAILY PO 10/18/17 12:45 (Flovent Hfa 220 Mcg Inh) 1 puff BID INH 10/18/17 12:45 10/18/17 21:39 (Aspirin) 325 mg DAILY PO 10/19/17 09:45 UNV (Decadron Inj) 4 mg Q8HR IV PUSH 10/19/17 09:45 UNV A/P Problem List: (1) Dysphagia ICD Code: R13.10 - Dysphagia, unspecified Assessment and Plan Dysphagia/ Left facial pressure/ Tongue swelling/ Neck pain MRI and MRA unremarkable. Neurology and GI consults appreciated. S/p EGD which revealed esophagitis. . WBC is improving. She is afebrile at this point. - start Unasyn. - ST following. ADAT. - PPI. - repeat MRI and MRA of carotids per neurology. - start Decadron for swelling. - consider ENT consult. Left internal carotid dissection CT showed: The entire left internal carotid artery is abnormal; There is circumferential soft tissue density material causing mild luminal narrowing. Vascular surgery consult appreciated. - ASA 325 mg daily. - follow up with vascular surgery. - MRA carotids pending. HTN Blood pressure fluctuates. - Vasotec as needed. DVT prophylaxis: Early ambulation Discharge Planning Awaiting MRI/ MRA, possible ENT Syed Caro DO Oct 19, 2017 09:58
[2017-10-19] MEDS ORDERED: GADODIAMIDE PF 287 MG/ML 20 ML VIAL (for RAD MRI) IV PUSH ONE (11:11)
--- NOTE | 2017-10-19 11:29 | RADRPT ---
EXAM DATE/TIME: 10/19/2017 10:31 [facility] COMPARISON: No previous studies available for comparison. INDICATIONS : Left sided numbness. CONTRAST: 20 cc Omniscan (gadodiamide) IV MEDICAL HISTORY : None. SURGICAL HISTORY : D anc C. ENCOUNTER: Initial ACUITY: 3 day PAIN SCORE: 0/10 LOCATION: Head TECHNIQUE: Multiplanar, multisequence MRI of the brain was performed both prior to and following the administrat ion of paramagnetic contrast. FINDINGS: CEREBRUM: The ventricles are normal for age. No evidence of midline shift, mass lesion, hemorrhage or acute in farction. No extraaxial fluid collections are seen. The pituitary gland and suprasellar cistern are normal in configuration. WHITE MATTER: No significant signal abnormalities are seen in the white matter. POSTERIOR FOSSA: The cerebellum and brainstem are intact. The 4th ventricle is midline. The cerebellopontine angle is unremarkable. The cerebellar tonsils are normal in position. DIFFUSION IMAGING: No focal areas of restricted diffusion are seen. No evidence of acute infarction. EXTRACRANIAL: The visualized portions of the orbits and paranasal sinuses are unremarkable. POST-CONTRAST: No abnormal areas of parenchymal or dural enhancement. No evidence of blood-brain barrier breakdown. CONCLUSION: 1. No evidence of acute intracranial pathology. No masses are identified. Jose Krause MD on October 19, 2017 at 11:19 Board Certified Radiologist. This report was verified electronically.
[2017-10-19] MEDS: DEXAMETHASONE SOD PHOS 4 MG/ML VIAL IV PUSH SCH ×2 (11:30→18:01)
[2017-10-19] MEDS: ASPIRIN 325 MG TAB PO SCH (11:30)
[2017-10-19 11:50] LABS: BACTERIA, URINE MANY /hpf; BLOOD, URINE SMALL (NEG); COMMENT (UR) CULTURE INDICATED; CULTURE IF INDICATED CULTURE INDICATED; GLUCOSE,URINE NEG (NEG); KETONE, URINE TRACE mg/dL (NEG); MUCUS URINE FEW /lpf (OCC); NITRITE,URINE NEG (NEG); PH, URINE 6.5 (5.0-8.5); SQUAMOUS EPITHELIAL CELL URINE 14 /hpf (0-5); URINE COLOR LIGHT-YELLOW (YELLW/STRAW)
--- NOTE | 2017-10-19 12:14 | RADRPT ---
EXAM DATE/TIME: 10/19/2017 10:31 [facility] COMPARISON: No previous studies available for comparison. INDICATIONS : Stroke. CONTRAST: 20 cc Omniscan (gadodiamide) IV MEDICAL HISTORY : None. SURGICAL HISTORY : D and C. ENCOUNTER: Initial ACUITY: 3 day PAIN SCORE: 0/10 LOCATION: neck Percent stenosis is calculated using the diameter of the stenotic region over the diameter of the nor mal distal internal carotid artery. TECHNIQUE: Bolus infused MRA of the extracranial circulation was performed using a neurovascular coil. Post pro cessing was performed including rotating subvolume maximum intensity projections of each carotid mahamed ry, rotating full volume maximum intensity projections of both carotid arteries, sagittal and coronal sliding thin slab reformations of each carotid artery, and left oblique sliding thin slab reformatio n through the aortic arch to include the origin of the arch branch vessels. FINDINGS: AORTIC ARCH: There is a three vessel origin of the great vessels from the aorta. No evidence of ostial narrowing. RIGHT CAROTID: The common carotid artery is intact. The carotid bulb has a normal configuration without ulceration or narrowing. The internal carotid artery lumen is smooth without stenosis. The external carotid ar yovani is intact. LEFT CAROTID: The common carotid artery is intact. The carotid bulb has a normal configuration without ulceration or narrowing. The internal carotid artery lumen is smooth without stenosis. The external carotid ar yovani is intact. VERTEBRALS: The vertebral arteries have a symmetric diameter. No stenotic lesions are seen. CONCLUSION: 1. Unremarkable MR angiography of the cervicobrachial arch and carotid arteries. Jose Krause MD on October 19, 2017 at 12:11 Board Certified Radiologist. This report was verified electronically.
--- NOTE | 2017-10-19 14:03 | HHI.GIFU ---
Subjective Remarks Pt resting in bed. Asking for ice cream. Still feels like her tongue is swollen and her left neck is painful. (Marylou Yoder) Objective Vitals I&O Vital Signs Date Time Temp Pulse Resp B/P (MAP) Pulse Ox O2 Delivery O2 Flow Rate FiO2 10/19/17 08:22 97.9 72 20 160/90 (113) 96 10/19/17 07:41 65 10/19/17 03:50 98.4 71 17 154/81 (105) 97 10/19/17 03:00 60 10/19/17 00:04 63 10/19/17 00:00 98.5 84 17 144/77 (99) 96 10/18/17 20:39 98.7 74 16 142/79 (100) 97 10/18/17 20:02 83 10/18/17 17:30 18 10/18/17 16:30 70 10/18/17 16:03 98.0 61 18 145/71 (95) 98 10/18/17 15:20 61 17 122/70 (87) 95 10/18/17 15:10 76 18 122/63 (82) 95 10/18/17 15:00 72 17 120/74 (89) 94 10/18/17 14:50 63 16 126/86 (99) 93 10/18/17 14:40 98.4 72 17 125/73 (90) 97 I/O 10/18/17 10/18/17 10/18/17 10/19/17 10/19/17 10/19/17 07:00 15:00 23:00 07:00 15:00 23:00 Intake Total 50 ml 100 ml 100 ml Balance 50 ml 100 ml 100 ml Intake IV Total 100 ml 100 ml Other 50 ml Laboratory Laboratory Tests Test 10/18/17 18:07 10/19/17 06:21 10/19/17 11:25 Erythrocyte Sedimentation Rate 24 White Blood Count 10.8 Red Blood Count 4.32 Hemoglobin 12.7 Hematocrit 37.8 Mean Corpuscular Volume 87.5 Mean Corpuscular Hemoglobin 29.4 Mean Corpuscular Hemoglobin Concent 33.5 Red Cell Distribution Width 13.9 Platelet Count 306 Mean Platelet Volume 7.3 Neutrophils (%) (Auto) 66.9 Lymphocytes (%) (Auto) 23.2 Monocytes (%) (Auto) 8.1 Eosinophils (%) (Auto) 1.5 Basophils (%) (Auto) 0.3 Neutrophils # (Auto) 7.3 Lymphocytes # (Auto) 2.5 Monocytes # (Auto) 0.9 Eosinophils # (Auto) 0.2 Basophils # (Auto) 0.0 CBC Comment DIFF FINAL Differential Comment Urine Color LIGHT-YELLOW Urine Turbidity HAZY Urine pH 6.5 Urine Specific [place] 1.016 Urine Protein NEG Urine Glucose (UA) NEG Urine Ketones TRACE Urine Occult Blood SMALL Urine Nitrite NEG Urine Bilirubin NEG Urine Urobilinogen LESS THAN 2.0 Urine Leukocyte Esterase LARGE Urine RBC 3 Urine WBC 3 Urine Squamous Epithelial Cells 14 Urine Bacteria MANY Urine Mucus FEW Microscopic Urinalysis Comment CULTURE INDICATED Date/Time Source Procedure Growth Status 10/19/17 11:25 Urine Clean Catch Urine Culture Pending Received Imaging Last Impressions Neck Magnetic Resonance Angiography 10/19/17 0000 Signed Impressions: Service Date/Time: Thursday, October 19, 2017 10:31 - CONCLUSION: 1. Unremarkable MR angiography of the cervicobrachial arch and carotid arteries. Jose Krause MD Brain MRI 10/19/17 0000 Signed Impressions: Service Date/Time: Thursday, October 19, 2017 10:31 - CONCLUSION: 1. No evidence of acute intracranial pathology. No masses are identified. Jose Krause MD Neck CT 10/18/17 0000 Signed Impressions: Service Date/Time: October 13:59 - CONCLUSION: 1. The entire left internal carotid artery is abnormal. There is circumferential soft tissue density material causing mild luminal narrowing. Differential diagnostic considerations include either a vasculitis or a circumferential intramural hematoma related to dissection. 2. The remainder of the examination demonstrates no acute finding. Napoleon Rain MD Head Magnetic Resonance Angiography 10/17/17 0000 Signed Impressions: Service Date/Time: Tuesday, October 17, 2017 08:41 - CONCLUSION: 1. Unremarkable MR angiography of the brain. Jose Krause MD Cervical Spine MRI 10/17/17 0000 Signed Impressions: Service Date/Time: Tuesday, October 17, 2017 21:39 - CONCLUSION: 1. Cervical cord is within normal limits with no focal lesion or abnormal signal. 2. No disc protrusion or spinal stenosis. The neural foramina are patent. Syed Lion MD Physical Exam HEENT: PERRL; normocephalic; blood bilat sclera; no jaundice. CHEST: CTA CARDIAC: RRR ABDOMEN: Soft, nondistended, nontender; no hepatosplenomegaly; bowel sounds are present in all four quadrants. EXTREMITIES: No clubbing, cyanosis, or edema. SKIN: Normal; no rash; no jaundice. SUPERVISOR ANODIZING: No focal deficits; alert and oriented times three. (Marylou Yoder) Assessment and Plan Plan ASSESSMENT - bolus sensation, dysphagia, reflux- pt admits difficulty initiating swallow, swollen tongue, bolus sensation throat for last 2 days. Some n/v as well. had amox & prednisone Sunday. + sick contacts. unclear etiology could include gastritis vs h pylori vs candidiasis. being evaluated for CVA d/t unilateral face pain as well. + anxiety s/p EGD found esophagitis, bx pending. has been eval by vascular surgery and may have ICA dissection, will be treated with ASA ST eval no sign of aspiration, swallow intact, and ok for any consistency, d/ w speech therapist ENT consult pending PLAN - full liquids - await path - await ENT consult - further recs to follow based on results above THis pt seen by myself and Dr Romero and this note is written on his behalf (Maryluo Yoder) Physician Comments Seen and examined with JUNITO, still with difficulty swallowing. ENT consulted. PCP to fu on CT neck findings. Await biopsies. (John Romero MD) Marylou Yoder Oct 19, 2017 14:03 John Romero MD Oct 19, 2017 15:06
[2017-10-20] VITALS (9 sets, daily range): BP systolic 133–152; BP diastolic 73–84; PULSE 58–115; RESP 17–20; TEMP 97.3–98.5; O2SAT 94–96
[2017-10-20] MEDS: MORPHINE SULFATE ORAL SOLN 10 MG/0.5 ML SYRINGE PO PRN ×5 (00:25→21:04)
[2017-10-20] MEDS: DEXAMETHASONE SOD PHOS 4 MG/ML VIAL IV PUSH SCH ×3 (02:57→17:58)
[2017-10-20] MEDS: AMPICILLIN-SULBACTAM INJ 1,500 MG in SODIUM CHLORIDE 0.9% INJ 100 ML IV SCH ×4 (02:57→21:06)
[2017-10-20] MEDS: PANTOPRAZOLE SOD 40 MG DELAYED RELEASE TAB PO SCH (08:37)
[2017-10-20] MEDS: ASPIRIN 325 MG TAB PO SCH (08:37)
[2017-10-20] MEDS: TOPIRAMATE 25 MG TAB PO SCH ×2 (08:37→20:57)
[2017-10-20] MEDS: SODIUM CHLORIDE 0.9% FLUSH 10 ML FLUSH IV FLUSH SCH ×2 (08:41→20:59)
[2017-10-20] MEDS: FLUTICASONE PROPIONATE 220 MCG/ACT 12 GM INHALER INH SCH ×2 (08:42→20:59)
--- NOTE | 2017-10-20 15:26 | HHI.PR ---
Subjective Remarks Follow up for left sided facial pain, left sided tongue dysmotility. Patient is currently doing well. She continues to have left face discomfort and unable to move tongue to the left well. No fever, chills. Objective Vitals Vital Signs Date Time Temp Pulse Resp B/P (MAP) Pulse Ox O2 Delivery O2 Flow Rate FiO2 10/20/17 12:58 97.3 80 18 152/76 (101) 94 10/20/17 08:34 98.1 92 20 142/84 (103) 96 10/20/17 08:00 115 10/20/17 04:08 77 10/20/17 04:00 98.0 76 17 134/75 (94) 94 10/20/17 00:44 58 10/20/17 00:30 98.5 72 18 140/77 (98) 94 10/19/17 20:31 86 10/19/17 20:00 98.8 92 17 139/88 (105) 96 I/O 10/19/17 10/19/17 10/19/17 10/20/17 10/20/17 10/20/17 07:00 15:00 23:00 07:00 15:00 23:00 Intake Total 100 ml 1200 ml 1000 ml 240 ml Balance 100 ml 1200 ml 1000 ml 240 ml Intake Oral 1000 ml 900 ml 240 ml IV Total 100 ml 200 ml 100 ml # Voids 1 3 # Bowel Movements 0 0 Result Diagram: 10/19/17 0621 10/18/17 0605 Imaging Last Impressions Neck Magnetic Resonance Angiography 10/19/17 0000 Signed Impressions: Service Date/Time: Thursday, October 19, 2017 10:31 - CONCLUSION: 1. Unremarkable MR angiography of the cervicobrachial arch and carotid arteries. Jose Krause MD Brain MRI 10/19/17 0000 Signed Impressions: Service Date/Time: Thursday, October 19, 2017 10:31 - CONCLUSION: 1. No evidence of acute intracranial pathology. No masses are identified. Jose Krause MD Neck CT 10/18/17 0000 Signed Impressions: Service Date/Time: October 13:59 - CONCLUSION: 1. The entire left internal carotid artery is abnormal. There is circumferential soft tissue density material causing mild luminal narrowing. Differential diagnostic considerations include either a vasculitis or a circumferential intramural hematoma related to dissection. 2. The remainder of the examination demonstrates no acute finding. Napoleon Rain MD Head Magnetic Resonance Angiography 10/17/17 0000 Signed Impressions: Service Date/Time: Tuesday, October 17, 2017 08:41 - CONCLUSION: 1. Unremarkable MR angiography of the brain. Jose Krause MD Cervical Spine MRI 10/17/17 0000 Signed Impressions: Service Date/Time: Tuesday, October 17, 2017 21:39 - CONCLUSION: 1. Cervical cord is within normal limits with no focal lesion or abnormal signal. 2. No disc protrusion or spinal stenosis. The neural foramina are patent. Syed Lion MD Objective Remarks GENERAL: Alert, Oriented x 3, NAD. SKIN: Warm and dry. HEAD: Normocephalic. Left side of the face does feel somewhat tapia. EYES: No scleral icterus. No injection or drainage. NECK: Supple, trachea midline. No JVD or lymphadenopathy. CARDIOVASCULAR: Regular rate and rhythm without murmurs, gallops, or rubs. RESPIRATORY: Breath sounds equal bilaterally. No accessory muscle use. GASTROINTESTINAL: Abdomen soft, non-tender, nondistended. MUSCULOSKELETAL: No cyanosis, or edema. Neuro: No focal neurological deficits except difficulty moving tongue to the left. BACK: Nontender without obvious deformity. No CVA tenderness. 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 Morel is a 37 year old female who was brought to the hospital due to suspicion over stroke. Two days prior to this admission, patient experienced pain around left side of her face, left ear down her cheek into her neck. She went to her PCP - patient was started on Amoxicillin and Prednisone. Her symptoms did not improve much. Additionally, she felt something was stuck in her throat. Work up indicated a possible left ICA dissection. Neurology was consulted. No evidence of stroke. CN 12 palsy suspected. - Left facial pain, pressure - Probable hypoglossal nerve palsy - Will discontinue Unasyn. Patient does not appear to have any bacterial infectious etiology. - Viral illness leading to CN palsy is a possible explanation. - Currently on Dexamethasone 4mg IV Q8hrs. Will consider switching to PO. - ENT evaluation pending. - Left carotid artery dissection - Vascular surgery does not feel this is related to patient's symptoms. - Will continue ASA 325mg Qday per Vascular surgery recs. - GERD - continue PPI. Full code. Ambulation. Bro Cornejo DO Oct 20, 2017 15:26
[2017-10-21] VITALS (9 sets, daily range): BP systolic 121–158; BP diastolic 70–86; PULSE 56–85; RESP 17–20; TEMP 97.5–98.5; O2SAT 94–97
[2017-10-21] MEDS: MORPHINE SULFATE ORAL SOLN 10 MG/0.5 ML SYRINGE PO PRN ×3 (01:09→23:36)
[2017-10-21] MEDS: DEXAMETHASONE SOD PHOS 4 MG/ML VIAL IV PUSH SCH ×3 (03:21→17:51)
[2017-10-21] MEDS: SODIUM CHLORIDE 0.9% FLUSH 10 ML FLUSH IV FLUSH SCH ×2 (09:00→21:00)
[2017-10-21] MEDS: ASPIRIN 325 MG TAB PO SCH (10:07)
[2017-10-21] MEDS: PANTOPRAZOLE SOD 40 MG DELAYED RELEASE TAB PO SCH (10:07)
[2017-10-21] MEDS: TOPIRAMATE 25 MG TAB PO SCH ×2 (10:07→21:26)
[2017-10-21] MEDS: FLUTICASONE PROPIONATE 220 MCG/ACT 12 GM INHALER INH SCH ×2 (10:07→21:23)
--- NOTE | 2017-10-21 10:15 | PD.VS.PN ---
Subjective Subjective/Hospital Course Pt will slightly less LEFT neck pain still has some difficulty swallowing and weakness of high pitched vocal tones c/o not being able to deviate tongue completely to LEFT Objective Vitals/I&O Date Time Temp Pulse Resp B/P (MAP) Pulse Ox O2 Delivery O2 Flow Rate FiO2 10/21/17 08:29 97.8 62 20 158/86 (110) 96 10/21/17 04:49 97.5 64 17 136/74 (94) 97 10/21/17 04:14 56 10/21/17 00:22 97.9 67 17 150/86 (107) 97 10/21/17 00:00 76 10/20/17 20:29 98.4 83 18 133/73 (93) 96 10/20/17 16:10 97.9 74 18 152/77 (102) 94 10/20/17 12:58 97.3 80 18 152/76 (101) 94 10/21/17 10/21/17 10/21/17 07:00 15:00 23:00 Intake Total 340 ml Balance 340 ml Physical Exam minimal L neck tenderness moves tongue expect extreme LEFT lateral deviation no facial droop or other CN deficit Laboratory Date/Time Source Procedure Growth Status 10/19/17 11:25 Urine Clean Catch Urine Culture - Final NO GROWTH IN 48 HOURS. Complete Assessment and Plan Plan Likely L ICA dissection but I am not sure this is the cause of the symptoms of hoarseness and difficulty swallowing. Suspect all self-limited and only needs ASA Will arrange outpt f/u in 4 weeks with carotid duplex If symptoms worsen, should get CTA neck Jm Vega MD FACS [employer] ambulance driver paramedic [facility] [phone] Jm Vega MD Oct 21, 2017 10:14
--- NOTE | 2017-10-21 11:51 | MB ---
cc: WALLY NIELSON MD DATE OF CONSULTATION: 10/20/2017 CHIEF COMPLAINT: Dysphagia. HISTORY OF PRESENT ILLNESS: The patient is a 37 year-old female who was brought into [facility] from [place] for possible cerebrovascular accident. The patient reports that she was having severe nausea and vomiting with significant vomiting causing subconjunctival hemorrhages in her eyes. She started to notice that she was having significant dysphagia as well as inability to control her tongue movement, and started having significant dysphagia. This brought her into the emergency room for further workup. During this workup she has been noted to have a dissection of her left internal carotid artery. She continues to report significant dysphagia and inability to control her tongue. We have been asked to evaluate for further evaluation of the tongue to rule out any tongue lesions. PAST MEDICAL HISTORY: Significant for: 1. Anxiety. 2. Previous murmur. PAST SURGICAL HISTORY: Significant for: 1. D&C. OUTPATIENT MEDICATIONS: None. ALLERGIES: IBUPROFEN SOCIAL HISTORY: She does have a history of tobacco use, none currently, occasional alcohol use. Denies illicit drug use. PHYSICAL EXAMINATION The patient is alert and oriented x3 in no acute distress. HEENT: Exam today, flexible laryngoscopy at bedside reveals normal vocal cord movement, normal pharyngeal wall movement, normal palatal elevation as well as relatively normal tongue movement. There are no masses or lesions noted. No ulcerations noted. Palpation of the tongue reveals no deep palpable lesions of the tongue. Tongue musculature is strong, however, I do agree with her that the tongue does have an unusual appearance with the left side seeming more full than the right side, but when she is asked to move the tongue, it does move relatively normally and she has no audible dysarthria. Neck: Exam reveals no palpable adenopathy. Nasal endoscopy shows no purulence from the sinus cavities, no nasopharyngeal lesions. ASSESSMENT/PLAN Unfortunately I do not see any causes of her current symptoms and would have to defer to neurology as well as vascular surgery team as to whether left internal carotid artery problem could be the root cause of the symptoms or not, but at this time there are no lesions of the tongue, no significant sinus disease or head and neck disease to account for any of the current symptoms. Defer further workup for neurologic evaluation to neurology. Thank you for the consultation. Wally KENNEDY/RIGO /11:00 AM /11:25 AM
[2017-10-21] MEDS: FAMOTIDINE 40 MG/5 ML LIQ 50 ML BTL NG SCH ×2 (14:00→21:24)
--- NOTE | 2017-10-21 14:35 | RADRPT ---
EXAM DATE/TIME: 10/21/2017 14:14 [facility] COMPARISON: CHEST PA & LAT, October 16, 2017, 10:37. INDICATIONS : Cough MEDICAL HISTORY : SURGICAL HISTORY : ENCOUNTER: Initial ACUITY: 2 days PAIN SCORE: 0/10 LOCATION: chest FINDINGS: A single view of the chest demonstrates the lungs to be symmetrically aerated without evidence of mas s, infiltrate or effusion. The cardiomediastinal contours are unremarkable. Osseous structures are intact. CONCLUSION: No acute disease. No significant change has occurred. Melvin Corrales MD on October 21, 2017 at 14:33 Board Certified Radiologist. This report was verified electronically.
--- NOTE | 2017-10-21 20:40 | HHI.PR ---
Subjective Remarks Follow up for left sided facial pain, left sided tongue dysmotility. Patient reports no fever, chills. However, she continues to have difficulty eating solid food. She also reports green phlegm production. No shortness of breath. Objective Vitals Vital Signs Date Time Temp Pulse Resp B/P (MAP) Pulse Ox O2 Delivery O2 Flow Rate FiO2 10/21/17 16:04 98.5 85 20 140/73 (95) 96 10/21/17 15:00 84 10/21/17 15:00 84 10/21/17 12:31 98.0 75 20 137/71 (93) 94 10/21/17 08:29 97.8 62 20 158/86 (110) 96 10/21/17 04:49 97.5 64 17 136/74 (94) 97 10/21/17 04:14 56 10/21/17 00:22 97.9 67 17 150/86 (107) 97 10/21/17 00:00 76 I/O 10/20/17 10/20/17 10/20/17 10/21/17 10/21/17 10/21/17 07:00 15:00 23:00 07:00 15:00 23:00 Intake Total 1000 ml 240 ml 340 ml 720 ml Balance 1000 ml 240 ml 340 ml 720 ml Intake Oral 900 ml 240 ml 240 ml 720 ml IV Total 100 ml 100 ml # Voids 3 2 # Bowel Movements 0 Result Diagram: 10/19/17 0621 10/18/17 0605 Imaging Last Impressions Chest X-Ray 10/21/17 0000 Signed Impressions: Service Date/Time: Saturday, October 21, 2017 14:14 - CONCLUSION: No acute disease. No significant change has occurred. Melvin Corrales MD Neck Magnetic Resonance Angiography 10/19/17 0000 Signed Impressions: Service Date/Time: Thursday, October 19, 2017 10:31 - CONCLUSION: 1. Unremarkable MR angiography of the cervicobrachial arch and carotid arteries. Jose Krause MD Brain MRI 10/19/17 0000 Signed Impressions: Service Date/Time: Thursday, October 19, 2017 10:31 - CONCLUSION: 1. No evidence of acute intracranial pathology. No masses are identified. Jose Krause MD Neck CT 10/18/17 0000 Signed Impressions: Service Date/Time: October 13:59 - CONCLUSION: 1. The entire left internal carotid artery is abnormal. There is circumferential soft tissue density material causing mild luminal narrowing. Differential diagnostic considerations include either a vasculitis or a circumferential intramural hematoma related to dissection. 2. The remainder of the examination demonstrates no acute finding. Napoleon Rain MD Head Magnetic Resonance Angiography 10/17/17 0000 Signed Impressions: Service Date/Time: Tuesday, October 17, 2017 08:41 - CONCLUSION: 1. Unremarkable MR angiography of the brain. Jose Krause MD Cervical Spine MRI 10/17/17 0000 Signed Impressions: Service Date/Time: Tuesday, October 17, 2017 21:39 - CONCLUSION: 1. Cervical cord is within normal limits with no focal lesion or abnormal signal. 2. No disc protrusion or spinal stenosis. The neural foramina are patent. Syed Lion MD Objective Remarks GENERAL: Alert, Oriented x 3, NAD. SKIN: Warm and dry. HEAD: Normocephalic. Left side of the face does feel somewhat tapia. EYES: No scleral icterus. No injection or drainage. NECK: Supple, trachea midline. No JVD or lymphadenopathy. CARDIOVASCULAR: Regular rate and rhythm without murmurs, gallops, or rubs. RESPIRATORY: Breath sounds equal bilaterally. No accessory muscle use. GASTROINTESTINAL: Abdomen soft, non-tender, nondistended. MUSCULOSKELETAL: No cyanosis, or edema. Neuro: No focal neurological deficits except difficulty moving tongue to the left. BACK: Nontender without obvious deformity. No CVA tenderness. 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 Morel is a 37 year old female who was brought to the hospital due to suspicion over stroke. Two days prior to this admission, patient experienced pain around left side of her face, left ear down her cheek into her neck. She went to her PCP - patient was started on Amoxicillin and Prednisone. Her symptoms did not improve much. Additionally, she felt something was stuck in her throat. Work up indicated a possible left ICA dissection. Neurology was consulted. No evidence of stroke. CN 12 palsy suspected. - Left facial pain, pressure - Probable hypoglossal nerve palsy - discontinued Unasyn. Patient does not appear to have any bacterial infectious etiology. - Viral illness leading to CN palsy is a possible explanation. - Currently on Dexamethasone 4mg IV Q8hrs. Will consider switching to PO. - ENT evaluated patient - No ENT etiology for patient's symptoms. - Left carotid artery dissection - Vascular surgery does not feel this is related to patient's symptoms. - Will continue ASA 325mg Qday per Vascular surgery recs. - GERD - Change PPI to famotidine. Full code. Ambulation. Bro Cornejo DO Oct 21, 2017 20:40
[2017-10-22 01:12] VITALS: BP 156/83; PULSE 63; RESP 18; TEMP 98; O2SAT 96
[2017-10-22] MEDS: DEXAMETHASONE SOD PHOS 4 MG/ML VIAL IV PUSH SCH (02:08)
[2017-10-22 04:54] VITALS: BP 126/64; PULSE 55; RESP 18; TEMP 98.3; O2SAT 96
[2017-10-22 08:30] VITALS: BP 144/79; PULSE 71; RESP 18; TEMP 97.9; O2SAT 96
[2017-10-22] MEDS: ASPIRIN 325 MG TAB PO SCH (08:34)
[2017-10-22] MEDS: FLUTICASONE PROPIONATE 220 MCG/ACT 12 GM INHALER INH SCH (08:34)
[2017-10-22] MEDS: FAMOTIDINE 40 MG/5 ML LIQ 50 ML BTL NG SCH (08:35)
[2017-10-22] MEDS: TOPIRAMATE 25 MG TAB PO SCH (08:35)
[2017-10-22] MEDS: SODIUM CHLORIDE 0.9% FLUSH 10 ML FLUSH IV FLUSH SCH (08:36)
[2017-10-22] MEDS: MORPHINE SULFATE ORAL SOLN 10 MG/0.5 ML SYRINGE PO PRN (08:41)
[2017-10-22] MEDS ORDERED: ASA325 PO (09:54)
[2017-10-22] MEDS ORDERED: NORC5TAB PO (10:12)
[2017-10-22] MEDS ORDERED: NEUR300C PO (10:12)
[2017-10-22] MEDS ORDERED: [UNRECOGNIZED DRUG - CODE] PO (10:12)
[2017-10-22] MEDS ORDERED: VALT500T PO (10:12)
[2017-10-22] MEDS ORDERED: AMOX875T2 PO (10:12)
[2017-10-22 10:26] VITALS: PULSE 59
[2017-10-22] MEDS ORDERED: AMOXICILLIN/CLAVULANATE K 875 MG TAB PO SCH (11:00)
[2017-10-22] MEDS ORDERED: DEXAMETHASONE ORAL CONC 1 MG/ML 30 ML BTL PO SCH (11:00)
[2017-10-22 12:00] VITALS: PULSE 69
--- NOTE | 2017-10-22 12:59 | HHI.DS ---
Discharge Summary Admission Date Oct 19, 2017 at 9:58 am Discharge Date: Oct 22, 2017 Admitting Diagnosis r/o CVA, dysphagia . 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 There was LA Class A esophagitis noted 2. The mucosa of the stomach appeared normal 3. Normal duodenal mucosa in the bulb and second portion of the duodenum 4. Retroflexed views revealed no abnormalities Brief History - From Admission Mrs. Morel is a very pleasant 37-year-old female patient who was brought to [facility] from [place] for evaluation of possible CVA. The patient's symptoms began on Sunday when she woke up with the left side of her face around her eye and ear and down her cheek into her neck felt severely painful. The pain is described as a pressure. She thought it was an ear infection and went to work. She made appointment to see her primary care physician at [facility] Dr. Portillo. She said that they didn't find any source of infection but her white blood count was elevated and they put her on prednisone and amoxicillin. Regarding her ear, she had a little bit of fluid but no overt otitis media. If she states that she felt like she had something in her throat that could've been mucus. She vomited a few times during the day. She ate soup for lunch and was able to swallow but it was uncomfortable. After work, she had a terrible pain in her head and she took her first dose of prednisone and amoxicillin and follow like it got stuck in her throat. She said she had had a similar experience with ibuprofen a few years ago when it got stuck in her throat while she swallowed and she had subsequent lip swelling following that episode. She continued to feel like pills were stuck in her throat throughout the day and the night and vomited a total of 4 times during the day. 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 She reports that she is vomited so much that she's caused too subconjunctival hemorrhages in her eyes. She went to the emergency room and was given some liquid amoxicillin which was uncomfortable to drink. She was able to get it down but she also felt belching and heartburn. She was discharged and sent home. About 2:30 PM, her throat was feeling tight and swollen and she returned to the emergency room. On the first soft tissue and neck x-ray, a foreign body was thought to be present near the left giana but was later identified as most likely the patient's shirt button. The chest x-ray was negative for foreign body. She had cardiomegaly but no acute pulmonary disease. She's had a head CT with no acute disease noted. The patient reports that her speech seems weird because she is having difficulty controlling her tongue. She didn't feel any better after receiving steroids and Benadryl in the ED. She notices that she is coughing more since receiving a numbing medication in the emergency department last night that was given for sore throat. She tells me they had a negative strep test in the ED. She has no history of migraine headaches. She has felt both hot and cold alternating and felt like she might of had a fever but has no recorded fevers. She denies chest pain, shortness of breath, diarrhea, abdominal pain, weight loss, black or bloody stools, paresthesias. She denies having any unilateral weakness. She reports headache as feeling like more of the left sinus type of headache with more pressure than anything else. She denies any visual changes or blurry vision though she does endorse photophobia. During flashlight eye exam, she does not turn away from the light. Her and children have been fighting bronchitis and throat infections at home. Her was the first one who was ill. CBC/BMP: 10/19/1762010/18/17 06 Imaging Last Impressions Chest X-Ray 10/21/17 0000 Signed Impressions: Service Date/Time: Saturday, October 21, 2017 14:14 - CONCLUSION: No acute disease. No significant change has occurred. Melvin Corrales MD Neck Magnetic Resonance Angiography 12/8/17 0000 Signed Impressions: Service Date/Time: Thursday, October 19, 2017 10:31 - CONCLUSION: 1. Unremarkable MR angiography of the cervicobrachial arch and carotid arteries. Jose Krause MD Brain MRI 10/19/17 Signed Impressions: Service Date/Time: Thursday, October 19, 2017 10:31 - CONCLUSION: 1. No evidence of acute intracranial pathology. No masses are identified. Jose Krause MD Neck CT 10/18/17 Signed Impressions: Service Date/Time: October 13:59 - CONCLUSION: 1. The entire left internal carotid artery is abnormal. There is circumferential soft tissue density material causing mild luminal narrowing. Differential diagnostic considerations include either a vasculitis or a circumferential intramural hematoma related to dissection. 2. The remainder of the examination demonstrates no acute finding. Napoleon Rain MD Head Magnetic Resonance Angiography 10/17/17 Signed Impressions: Service Date/Time: Tuesday, October 17, 2017 08:41 - CONCLUSION: 1. Unremarkable MR angiography of the brain. Jose Krause MD Cervical Spine MRI 10/17/17 Signed Impressions: Service Date/Time: Tuesday, October 17, 2017 21:39 - CONCLUSION: 1. Cervical cord is within normal limits with no focal lesion or abnormal signal. 2. No disc protrusion or spinal stenosis. The neural foramina are patent. Syed Lion MD PE at Discharge GENERAL: Alert, Oriented x 3, NAD. SKIN: Warm and dry. HEAD: Normocephalic. Left side of the face does feel somewhat tapia. EYES: No scleral icterus. No injection or drainage. NECK: Supple, trachea midline. No JVD or lymphadenopathy. CARDIOVASCULAR: Regular rate and rhythm without murmurs, gallops, or rubs. RESPIRATORY: Breath sounds equal bilaterally. No accessory muscle use. GASTROINTESTINAL: Abdomen soft, non-tender, nondistended. MUSCULOSKELETAL: No cyanosis, or edema. Neuro: No focal neurological deficits except difficulty moving tongue to the left. BACK: Nontender without obvious deformity. No CVA tenderness. Pt update on day of discharge Patient complains of tongue problems - she is still not able to move her tongue that well. She is tolerating liquid diet well. No fever, chills. Hospital Course Ms. Morel is a 37 year old female who was brought to the hospital due to suspicion over stroke. Two days prior to this admission, patient experienced pain around left side of her face, left ear down her cheek into her neck. She went to her PCP - patient was started on Amoxicillin and Prednisone. Her symptoms did not improve much. Additionally, she felt something was stuck in her throat. Work up indicated a possible left ICA dissection. Neurology was consulted. No evidence of stroke. CN 12 palsy suspected. - Left facial pain, pressure - Probable hypoglossal nerve palsy - Possible otitis media. - discontinued Unasyn. We will discharge patient on Augmentin. She recently used Amoxicillin. - Patient's symptoms are not well explained by any etiology. - With our working diagnosis of post viral etiology of CN palsy, we will treat it with Valcyclovir and Dexamethasone. - Also will add Gabapentin. - ENT evaluated patient - No ENT etiology for patient's symptoms. - I encouraged patient to follow up with her PCP as well as Neurologist. - Left carotid artery dissection - Vascular surgery does not feel this is related to patient's symptoms. - continue ASA 325mg Qday per Vascular surgery recs. Outpatient follow up. - GERD - Change PPI to famotidine. Full code. Ambulation. Pt Condition on Discharge: Good Discharge Disposition: Discharge Home Discharge Time: > 30 minutes Discharge Instructions DIET: Follow Instructions for: As Tolerated, No Restrictions Speech Therapy-Diet Recommends: Regular Additional Diet Instructions: Gradually advance diet as tolerated. Activities you can perform: Regular-No Restrictions Follow up Referrals: Appointment for Follow Up Neurology - 2 Weeks with Sukhwinder Cates PhD, MD PCP Follow-up - 1 Week PCP Follow-up Vascular Surgery @ Vascular Surgery Vascular Surgery New Medications: Hydrocodone-Acetaminophen ([place]) 5 Mg-325 Mg Tab 1 TAB PO Q6H PRN for PAIN, #20 TAB 0 Refills Amoxicillin-Clavulanate (Amoxicillin-Clavulanate) 875-125 mg Tab 875 MG PO Q12HR for Infection for 7 Days, #14 TAB not for use in CrCl <30 mL/minute May substitute with LIQ if desired. Aspirin (Px Aspirin) 325 Mg Tab 325 MG PO DAILY for Blood Clot Prevention, #30 TAB Dexamethasone Intensol Liq (Dexamethasone Intensol Liq) 1 Mg/Ml Conc 10 MG PO BID for Inflammation for 7 Days, ML May substitute with Capsule/Tablet if desired. Gabapentin (Neurontin) 300 Mg Cap 300 MG PO TID for neuropathic pain, #60 CAP May substitute with LIQ if desired. Valacyclovir (Valtrex) 500 Mg Tab 1000 MG PO Q8HR for Infection for 7 Days, #30 TAB May substitute with LIQ if desired. Discontinued Medications: Amoxicillin Liq (Amoxicillin Liq) 400 Mg/5 Ml Susp 800 MG PO BID for Infection for 7 Days, #180 ML 0 Refills Amoxicillin-Clavulanate (Amoxicillin-Clavulanate) 875-125 mg Tab 875 MG PO BID for Infection, TAB 0 Refills not for use in CrCl <30 mL/minute Metoclopramide (Reglan) 10 Mg Tab 10 MG PO QID for 5 Days, #20 TAB 0 Refills Prednisone (21) 5 mg tab Dose Pack (Prednisone (21) 5 mg tab Dose Pack) 5 Mg Dspk 5 MG PO DIRECTED for Inflammation, #1 DSPK 0 Refills Bro Cornejo DO Oct 22, 2017 12:59
[2017-10-22] MEDS ORDERED: GABAPENTIN 300 MG CAP PO SCH (13:00)
[2017-10-22] MEDS ORDERED: valACYclovir HCL 500 MG TAB PO SCH (14:00)
== END 2017-10-22 17:35 | disposition home or self-care (01) | DRG 73 ==
LOC: NEDDLT 00:05 → NEPGCP 00:15 → OBSVTOIN 10-19 09:58 → N05B 10-19 16:01
PROVIDERS: ADMIT Hospitalist; ATTEND Hospitalist
PROC: 0DB58ZX Excision of Esophagus, Via Natural or Artificial Opening Endoscopic, Diagnostic (ICD-10-PCS; principal; 2017-10-18 11:32)
DX: G52.3 Disorders of hypoglossal nerve (principal); I77.71 Dissection of carotid artery; R13.10 Dysphagia, unspecified; H11.33 Conjunctival hemorrhage, bilateral; R11.2 Nausea with vomiting, unspecified; Z80.3 Family history of malignant neoplasm of breast; Z83.3 Family history of diabetes mellitus; Z82.49 Family history of ischemic heart disease and other diseases of the circulatory system; Z87.891 Personal history of nicotine dependence; M47.812 Spondylosis without myelopathy or radiculopathy, cervical region; M54.81 Occipital neuralgia; K21.0 Gastro-esophageal reflux disease with esophagitis; R51 Headache; H66.90 Otitis media, unspecified, unspecified ear
CPT/HCPCS: 70491; 70544; 70548; 70551; 70553; 71010; 72141; 80048; 80061; 81001; 83036; 83735; 84702; 85025; 85027; 85652; 86140; 87086; 88305; 88312; 96361; 96365; A9579; G0378; G8996-GN; G8997-GN; G8998-GN; J0295; J1100; J1200; J7030; J8540; Q9967